=== PATIENT | female | born 1960 | race Caucasian/White ===

== ENCOUNTER 2017-05-18 18:30 | Emergency (ER) | payer BC ==
--- NOTE | 2017-05-18 18:55 | Emergency Department Record ---
History of Present Illness - General Chief Complaint: Ankle/Foot Injury Stated Complaint: LEFT ANKLE INJURY/ FELL ON STAIRS Time Seen by Provider: 05/18/17 18:47 Source: Patient Mode of Arrival: Wheelchair Limitations: No limitations - History of Present Illness Initial Comments: 56 yo female presents to ED with a CC of injury to the left ankle and foot following a fall resulting from a missed step. Patient denies other injury, denies injury to the head and neck. Patient reports a history of fibromyalgia and RA. MD Complaint: Ankle injury Onset/Timin -: Hour(s) Injury: Ankle: Left, Foot: Left Type of Injury: Inversion Place: Home Severity: Mild Severity scale (1-10): 4 Improves With: Immobilization Worsens With: Weight bearing Context: Fall Treatments Prior to Arrival: Cold therapy - Related Data Home Medications Medication Instructions Recorded Confirmed Last Taken Bupropion HCl [Wellbutrin Sr] 150 mg PO BID 06/26/16 05/18/17 10/16/16 Butalbital/Aspirin/Caffeine 1 each PO TID PRN 06/26/16 05/18/17 10/16/16 [Fiorinal 50-325-40 mg Capsule] Calcium Carbonate [Calcium] 2,000 mg PO DAILY 06/26/16 05/18/17 10/16/16 Cholecalciferol (Vitamin D3) 2,000 unit PO DAILY 06/26/16 05/18/17 10/16/16 [Vitamin D3] Etanercept [Enbrel] 50 mg SQ WEEKLY 06/26/16 05/18/17 10/16/16 Montelukast Sodium [Singulair] 10 mg PO DAILY 06/26/16 05/18/17 10/16/16 Oxycodone HCl/Acetaminophen 1 tab PO Q6H PRN 06/26/16 05/18/17 10/16/16 [Percocet 10mg/325mg] Ondansetron [Zofran Odt] 4 mg PO Q8H PRN 10/17/16 05/18/17 10/17/16 Allergies Allergy/AdvReac Type Severity Reaction Status Date / Time codeine Allergy HIVES Verified 05/18/17 18:43 morphine Allergy ITCHING Verified 05/18/17 18:43 Sulfa (Sulfonamide Allergy HIVES Verified 05/18/17 18:43 Antibiotics) NSAIDS (Non-Steroidal AdvReac retains Verified 05/18/17 18:43 Anti-Inflamma fluid Travel Screening - Travel/Exposure Within Last 30 Days Have you traveled within the last 30 days?: No Review of Systems Constitutional: Denies: Chills, Fever, Malaise, Night sweats ENT: Denies: Congestion, Ear pain, Epistaxis Respiratory: Denies: Cough, Dyspnea Cardiovascular: Denies: Chest pain, Dyspnea on exertion Endocrine: Denies: Fatigue, Heat or cold intolerance Gastrointestinal: Denies: Abdominal pain, Nausea, Vomiting Genitourinary: Denies: Incontinence, Retention Musculoskeletal: Reports: Arthralgia. Denies: Back pain, Gout, Joint swelling Skin: Denies: Bruising, Change in color Neurological: Denies: Abnormal gait, Headache Psychiatric: Denies: Anxiety Hematological/Lymphatic: Denies: Anemia, Blood Clots Past Medical History - SOCIAL HISTORY Smoking Status: Former smoker Alcohol Use: None Drug Use: None - RESPIRATORY Hx Respiratory Disorders: No - CARDIOVASCULAR Hx Cardio Disorders: No - NEURO Hx Neuro Disorders: Yes Hx Headaches: Yes (migraine) - GI Hx GI Disorders: No - Hx Genitourinary Disorders: Yes Hx Kidney Stones: Yes (x4 all on left) Hx UTI: Yes - ENDOCRINE Hx Endocrine Disorders: No Hx Diabetes: No Hx Thyroid Disease: No - MUSCULOSKELETAL Hx Musculoskeletal Disorders: Yes Hx Arthritis: Yes (neck) Hx Fibromyalgia: Yes Comment:: RA, lupus; Osteoarthritis - PSYCH Hx Psych Problems: Yes Hx Anxiety: Yes Hx Depression: Yes - HEMATOLOGY/ONCOLOGY Hx Hematology/Oncology Disorders: No Hx Anemia: No Hx Blood Disorders: No Hx Bruising: No Hx Cancer: No Family Medical History Any Significant Family History?: Yes Hx Cancer: Father, Grandparents Hx Dementia: Mother Hx HTN: Grandparents Physical Exam - General General Appearance: Alert, Oriented x3, Cooperative, Moderate distress Limitations: No limitations - Head Head exam: Atraumatic, Normocephalic, Normal inspection Head exam detail: negative: Abrasion, Contusion, Goodson's sign, General tenderness, Hematoma, Laceration - Eye Eye exam: Normal appearance. negative: Conjunctival injection, Periorbital swelling, Periorbital tenderness, Scleral icterus - ENT Ear exam: negative: Auricular hematoma, Auricular trauma Nasal Exam: negative: Active bleeding, Discharge, Dried blood, Foreign body Mouth exam: negative: Drooling, Laceration, Muffled voice, Tongue elevation - Neck Neck exam: Normal inspection. negative: Meningismus, Tenderness - Respiratory Respiratory exam: Normal lung sounds bilaterally. negative: Respiratory distress, Rhonchi, Stridor, Wheezes - Cardiovascular Cardiovascular Exam: Regular rate, Normal rhythm, Normal heart sounds - GI/Abdominal GI/Abdominal exam: Soft. negative: Rebound, Rigid, Tenderness - Rectal Rectal exam: Deferred - exam: Deferred - Extremities Extremities exam: Tenderness (TTP over the lateral foot and ankle with minimal STS present, strong DPP, no obvious fracture dislocation on examination, no pain over the proximal fibula.). negative: Pedal edema - Back Back exam: Denies: CVA tenderness (R), CVA tenderness (L) - Neurological Neurological exam: Alert, Oriented X3. negative: Motor sensory deficit - Psychiatric Psychiatric exam: Normal affect, Normal mood - Skin Skin exam: Normal color. negative: Abrasion Type of lesion: negative: abrasion Course Vital Signs 05/18/17 18:36 Temperature 99.3 F Pulse Rate 70 Respiratory 18 Rate Blood Pressure 114/69 Pulse Ox 99 - Reevaluation(s) Reevaluation #1: 05/18/17 19:17 Left ankle: STS laterally, no fracture identified Left foot: No fracture identified Patient and her SO were updated on radiology results, and the patient appears stable for discharge with an air splint and crutches for to assist with ambulation and comfort. Patient appears stable for discharge at this time. Disposition Disposition: Discharge Clinical Impression: Ankle sprain Qualifiers: Encounter type: initial encounter Involved ligament of ankle: calcaneofibular ligament Laterality: left Qualified Code(s): S93.412A - Sprain of calcaneofibular ligament of left ankle, initial encounter Disposition: Home, Self-Care Condition: (2) Stable Instructions: Ankle Sprain (ED) Additional Instructions: Return to ED if your symptoms worsen or if you have any concerns. Air splint and crutches as directed. Follow-up with your family doctor in 3-5 days as directed. Forms: Patient Portal Access Time of Disposition: :20
--- NOTE | 2017-05-19 14:31 | RADIOLOGY REPORT ---
EXAM: LEFT ANKLE HISTORY: PATIENT FELL WITH LEFT ANKLE INJURY, ROLLED HER ANKLE. TECHNIQUE: Three views of the left ankle were obtained. Comparison: None. Encounter: Initial. FINDINGS: The left ankle appears intact with mild soft tissue swelling laterally, but no definite fracture or dislocation identified. IMPRESSION: MILD SOFT TISSUE SWELLING LATERALLY. NO DEFINITE FRACTURE OF THE LEFT ANKLE IDENTIFIED. JOB NUMBER: [id number] MTDD
--- NOTE | 2017-05-19 14:34 | RADIOLOGY REPORT ---
EXAM: LEFT FOOT HISTORY: PATIENT FELL, ROLLED ANKLE, HAS PAIN IN THE LEFT FOOT AND CAN ONLY PARTIALLY BEAR WEIGHT. TECHNIQUE: Three views of the left foot were obtained. Comparison: None. Encounter: Initial. FINDINGS: There is a small benign appearing area of sclerosis in the distal phalanx of the great toe. No definite acute fracture or dislocation of the left foot identified. No prominent focal soft tissue swelling evident. IMPRESSION: NO FRACTURE OF THE LEFT FOOT IDENTIFIED. SMALL BENIGN APPEARING AREA OF SCLEROSIS IN THE DISTAL PHALANX OF THE GREAT TOE. JOB NUMBER: [id number] MTDD
== END 2017-05-18 19:31 | disposition home or self-care (01) ==
LOC: ER 18:30
DX: S93.412A Sprain of calcaneofibular ligament of left ankle, initial encounter (principal); M79.672 Pain in left foot; W10.9XXA Fall (on) (from) unspecified stairs and steps, initial encounter; Y92.009 Unspecified place in unspecified non-institutional (private) residence as the place of occurrence of the external cause
CPT/HCPCS: 99283; 99284

== ENCOUNTER 2018-05-15 16:08 | Emergency (ER) | payer BC, MEDICARE ==
[2018-05-15] MEDS ORDERED: ONDANSETRON HCL IV 4 MG/2 ML VIAL IVP ONE (16:36)
[2018-05-15] MEDS ORDERED: HYDROMORPHONE HCL 2 MG/ML VIAL IVP ONE ×2 (16:36→17:26)
--- NOTE | 2018-05-15 16:40 | Emergency Department Record ---
History of Present Illness - General Chief complaint: Flank Pain Stated complaint: rt flank pain/kidney stone? Time Seen by Provider: 05/15/18 16:31 Source: Patient, Family Mode of Arrival: Ambulatory Limitations: No limitations - History of Present Illness Initial comments: 57 yo female presents with right side that started in the morning yesterday. The pain is sharp. She has associated nausea. No fevers. No hematuria. She does have history of renal stones in the past. She denies rash. She placed a heating pad for relief and then developed erythema over the side. Her PCP gave her a Toradol shot without relief. No vomiting or diarrhea. She has RA and receives Rituxan. This has been very effective for the RA. MD Complaint: Other Onset/Timin -: Days(s) Radiation: R flank Severity: Moderate Severity scale (1-10): 9 Quality: Sharp, Stabbing Improves with: None Worsens with: None Patient : No Associated Symptoms: Abdominal pain, Nausea/vomiting - Related Data Home Medications Medication Instructions Recorded Confirmed Last Taken Methotrexate Sodium [Trexall] 10.5 mg PO WEEKLY 05/15/18 05/15/18 Unknown Rituximab [Rituxan] 10 mg IV ASDIR 05/15/18 05/15/18 05/01/18 Previous Rx's Medication Instructions Recorded Lidocaine Patch [Lidoderm] 1 ea TOP Q12H #14 patch 05/15/18 Valacyclovir HCl [Valtrex] 1,000 mg PO TID #21 tablet 05/15/18 Allergies Allergy/AdvReac Type Severity Reaction Status Date / Time codeine Allergy HIVES Verified 05/18/17 18:43 morphine Allergy ITCHING Verified 05/18/17 18:43 Sulfa (Sulfonamide Allergy HIVES Verified 05/18/17 18:43 Antibiotics) NSAIDS (Non-Steroidal AdvReac retains Verified 05/18/17 18:43 Anti-Inflamma fluid Travel Screening - Travel/Exposure Within Last 30 Days Have you traveled within the last 30 days?: No - Travel/Exposure Within Last Year Have you traveled outside the [place] in the last year?: No - Additonal Travel Details Have you been exposed to anyone with a communicable illness?: No - Travel Symptoms Symptom Screening: None Review of Systems Constitutional: Denies: Chills, Fever, Malaise, Weakness Eyes: Denies: Eye discharge, Photophobia ENT: Denies: Congestion, Throat pain Respiratory: Denies: Cough, Dyspnea, Hemoptysis, Wheezes Cardiovascular: Denies: Chest pain, Palpitations, Syncope Endocrine: Denies: Fatigue Gastrointestinal: Reports: Abdominal pain, Nausea. Denies: Constipation, Diarrhea, Hematemesis, Hematochezia, Melena, Vomiting Genitourinary: Denies: Dysuria, Hematuria, Incontinence, Urgency Musculoskeletal: Reports: As per HPI, Back pain. Denies: Arthralgia Skin: Reports: Other (redness over the area the patient attributes to her heating pad). Denies: Change in color Neurological: Denies: Headache Psychiatric: Denies: Anxiety Hematological/Lymphatic: Denies: Easy bleeding, Easy bruising, Swollen glands Past Medical History - SOCIAL HISTORY Smoking Status: Former smoker Alcohol Use: Rare Drug Use: None - RESPIRATORY Hx Respiratory Disorders: No - CARDIOVASCULAR Hx Cardio Disorders: No - NEURO Hx Neuro Disorders: Yes Hx Headaches: Yes (migraine) - GI Hx GI Disorders: No - Hx Genitourinary Disorders: Yes Hx Kidney Stones: Yes (x4 all on left) Hx UTI: Yes - ENDOCRINE Hx Endocrine Disorders: No Hx Diabetes: No Hx Thyroid Disease: No - MUSCULOSKELETAL Hx Musculoskeletal Disorders: Yes Hx Arthritis: Yes (neck) Hx Fibromyalgia: Yes Comment:: RA, lupus; Osteoarthritis - PSYCH Hx Psych Problems: Yes Hx Anxiety: Yes Hx Depression: Yes - HEMATOLOGY/ONCOLOGY Hx Hematology/Oncology Disorders: No Hx Anemia: No Hx Blood Disorders: No Hx Bruising: No Hx Cancer: No Family Medical History Any Significant Family History?: No Hx Cancer: Father, Grandparents Hx Dementia: Mother Hx HTN: Grandparents Physical Exam - General General Appearance: Alert, Oriented x3, Cooperative, No acute distress Limitations: No limitations - Head Head exam: Atraumatic, Normal inspection - Eye Eye exam: Normal appearance, Conjunctival injection - ENT ENT exam: Normal exam, Mucous membranes moist Ear exam: Normal external inspection Nasal Exam: Normal inspection Mouth exam: Normal external inspection - Neck Neck exam: Normal inspection, Full ROM. negative: Tenderness - Respiratory Respiratory exam: Normal lung sounds bilaterally. negative: Respiratory distress - Cardiovascular Cardiovascular Exam: Regular rate, Normal rhythm, Normal heart sounds - GI/Abdominal GI/Abdominal exam: Soft. negative: Distended, Guarding, Rebound, Rigid, Tenderness - Rectal Rectal exam: Deferred - exam: Deferred - Extremities Extremities exam: Normal inspection, Normal capillary refill. negative: Full ROM, Pedal edema, Tenderness - Back Back exam: Reports: CVA tenderness (R), Full ROM - Neurological Neurological exam: Alert, Oriented X3 - Psychiatric Psychiatric exam: Normal affect, Normal mood - Skin Skin exam: Erythema (right flank, no blisters or vesicles) Course Vital Signs 05/15/18 16:15 Temperature 98.6 F Pulse Rate 78 Respiratory 16 Rate Blood Pressure 128/85 Pulse Ox 98 - Reevaluation(s) Reevaluation #1: The rash is not vesicular but does have a dermatomal pattern and is sensitive to touch. I recommend treatment for shingles given she is on immune modulating medications. 05/15/18 16:58 The CBC was reviewed Hgb is 11.2 WBC is in the normal range 05/15/18 17:07 No acute changes on the CMP or the UA The US from March was reviewed. No acute findings at that time 05/15/18 17:15 05/15/18 17:[address] was reviewed. Questionable Left sided mild hydro with perinephric stranding suggests possible passed stone or UTI. She is negative for blood and infection on the urine. Her symptoms were right sided as well. Medical Decision Making - Lab Data Result diagrams: 05/15/18 16:28 05/15/18 16:28 Disposition Disposition: Discharge Clinical Impression: Right flank pain, Shingles Disposition: Home, Self-Care Condition: (1) Good Instructions: Shingles (ED), Flank Pain (ED) Additional Instructions: Call your doctor tomorrow for a recheck Return to be seen if worse, fever, or any new concerns Prescriptions: Lidocaine Patch [Lidoderm] 1 ea TOP Q12H #14 patch Valacyclovir HCl [Valtrex] 1,000 mg PO TID #21 tablet Forms: Patient Portal Access Time of Disposition: 17:16 Quality - Quality Measures Quality Measures: N/A - Blood Pressure Screening Does Patient Have Any of the Following: No Blood Pressure Classification: Pre-Hypertensive BP Reading Systolic Measurement: 122 Diastolic Measurement: 81 Screening for High Blood Pressure: < Pre-Hypertensive BP, F/U Documented > [ [id number]] Pre-Hypertensive Follow-up Interventions: Referral to alternative/primary care provider.
[2018-05-15 16:41] LABS: HEMATOCRIT 35.3 % (35.0-47.0); HEMOGLOBIN 11.7 gm/dl (11.6-16.0); MEAN CORPUSCULAR HEMOGLOBIN 33.1 pg (27-33); MEAN CORPUSCULAR HGB CONC 33.1 g/dl (32-36); PLATELET COUNT 322 K/uL (130-400); RED BLOOD COUNT 3.53 M/uL (3.80-5.40); RED CELL DISTRIBUTION WIDTH 12.6 % (11.5-14.5); WHITE BLOOD COUNT W/O DIFF 4.7 K/uL (4.2-12.2)
[2018-05-15 16:55] LABS: BLOOD UREA NITROGEN 9 mg/dL (6-20); CREATININE 0.9 mg/dL (0.5-0.9); EST GLOMERULAR FILTRATION RATE > 60 mL/min
[2018-05-15 16:56] LABS: TOTAL PROTEIN 6.4 g/dL (6.6-8.7)
[2018-05-15 16:58] LABS: GLUCOSE,RANDOM 100 mg/dL (74-109)
[2018-05-15 17:00] LABS: URINE APPEARANCE CLEAR; URINE BILIRUBIN NEGATIVE (NEGATIVE); URINE BLOOD NEGATIVE (NEGATIVE); URINE COLOR YELLOW; URINE GLUCOSE (UA) NEGATIVE (NEGATIVE); URINE KETONE NEGATIVE (NEGATIVE); URINE LEUKOCYTE ESTERASE NEGATIVE (NEGATIVE); URINE NITRITE NEGATIVE (NEGATIVE); URINE PROTEIN NEGATIVE (NEGATIVE); URINE UROBILINOGEN 0.2 E.U./dL (0.20 - 1.00)
[2018-05-15 17:01] LABS: ALB/GLOB RATIO 1.9 (1.1-1.8); ALBUMIN 4.2 g/dL (4.0-5.0); ALKALINE PHOSPHATASE 63 U/L (35-104); ALT/SGPT 31 U/L (<33); AST/SGOT 27 U/L (10.0-35.0)
--- NOTE | 2018-05-16 14:54 | CT SCAN REPORT ---
EXAM: CT SCAN OF THE ABDOMEN AND PELVIS WITHOUT CONTRAST HISTORY: RIGHT FLANK PAIN FOR THE PAST TWO DAYS. PREVIOUS HISTORY OF KIDNEY STONES. TECHNIQUE: Standard CT imaging of the abdomen and pelvis was performed without contrast. Comparison: 10/17/16. FINDINGS: There is mild atelectasis or scarring at both lung bases. Stable cysts are present within the left hepatic lobe. The liver is otherwise normal. The gallbladder, biliary tree, pancreas, spleen, and adrenal glands are normal. The aorta is normal in caliber. There is no retroperitoneal lymphadenopathy. There is minor prominence of the left renal pelvis and ureter with minor periureteral and perinephric fat stranding. There is no current obstructing calculus. This pattern is nonspecific and may represent a recently passed stone versus an ascending urinary tract infection. The urinary bladder is incompletely distended. There is minor wall thickening which may be artifactual due to the incomplete distention. There are no bladder calculi. The right kidney and ureter are unremarkable. There is minor diverticulosis within the sigmoid colon with no evidence for acute diverticulitis. The bowel and mesentery including the appendix are otherwise normal. There is no pneumoperitoneum or ascites. The uterus is surgically absent. The abdominal wall is unremarkable. Levoconvex scoliosis is present within the lumbar spine. There are no acute osseous abnormalities. IMPRESSION: 1. MILD PROMINENCE OF THE LEFT RENAL PELVIS AND URETER WITH SLIGHT PERINEPHRIC AND PERIURETERAL FAT STRANDING. THERE IS NO CURRENT OBSTRUCTING CALCULUS. DIFFERENTIAL CONSIDERATIONS INCLUDE A RECENTLY PASSED STONE VERSUS URINARY TRACT INFECTION. 2. MINOR SIGMOID DIVERTICULOSIS WITH NO DIVERTICULITIS. 3. STABLE HEPATIC CYSTS. JOB NUMBER: [id number] [facility]
== END 2018-05-15 17:58 | disposition home or self-care (01) ==
LOC: ER 16:08
DX: R10.9 Unspecified abdominal pain (principal); B02.9 Zoster without complications; Z87.891 Personal history of nicotine dependence; M06.9 Rheumatoid arthritis, unspecified
CPT/HCPCS: 99283 ×2; 96376; 96374; 96375; 80053; 81003; 85027; 74176; J2405; J1170